=== PATIENT | female | born 1930 | race Caucasian/White ===

== ENCOUNTER 2017-07-16 11:58 | Inpatient (IN) ==
[2017-07-16] MEDS ORDERED: NS 1,000 ML IV ONE (12:30)
[2017-07-16 13:14] LABS: URINE CULTURE NEEDED? NO; URINE MICRO REVIEW NEEDED? NO; URINE SOURCE CLEAN CATCH
[2017-07-16 13:18] LABS: BILIRUBIN URINE NEGATIVE (NEGATIVE); BLOOD URINE NEGATIVE (NEGATIVE); COLOR YELLOW; GLUCOSE URINE NEGATIVE (NEGATIVE); LEUKOCYTES URINE NEGATIVE (NEGATIVE); NITRITE URINE NEGATIVE (NEGATIVE); PH URINE 6.5; PROTEIN URINE TRACE mg/dL (NEGATIVE); SP GRAVITY URINE 1.016; TURBIDITY URINE CLEAR (CLEAR); UROBILINOGEN URINE NORMAL (NORMAL)
[2017-07-16 13:20] LABS: ALBUMIN 3.9 g/dL (3.5-5.0); CALCIUM 9.3 mg/dL (8.8-10.2); POTASSIUM 4.7 mmol/L (3.5-5.1); TOTAL BILIRUBIN 0.38 mg/dL (0.20-1.00); TOTAL PROTEIN 6.9 g/dL (6.3-8.3)
[2017-07-16 13:20] LABS: UR EPITHELIAL CELLS <10 /HPF (<10); URINE BACTERIA 1+ /HPF; URINE RBC <10 /HPF (<10); URINE WBC <10 /HPF (<10)
--- NOTE | 2017-07-16 14:06 | Diag Imaging Result Doc PS360 ---
EXAM : CT HEAD/C-SPINE W/O CONTRAST HISTORY: syncope, fall TECHNIQUE: CT brain without contrast. CT cervical spine without contrast. Dose reduction protocol. COMPARISON: CT brain is compared to 02/01/2017. CT cervical spine as compared to 07/03/2014. FINDINGS: Head: No parenchymal hemorrhage. No epidural or subdural hematoma. No subarachnoid hemorrhage. There is diffuse atrophy with chronic microvascular ischemic changes. No mass identified on this noncontrasted exam. No hydrocephalus. No sinus opacification. Cervical spine: There is good alignment to the cervical spine. No precervical soft tissue swelling. No subluxation. No fracture. There are moderate degenerative changes in the mid and lower cervical spine. There are moderate atherosclerotic calcifications in the carotid bulbs. IMPRESSION: Head: 1. No hemorrhage. No injury. 2. Atrophy with chronic microvascular ischemic changes Cervical spine: 1. No acute fracture. 2. Moderate degenerative spine changes Electronically signed by Anand Prescott 07/16/2017 2:03 PM
[2017-07-16] MEDS ORDERED: CARDIZEM IV ONE ×3 (14:07→15:14)
[2017-07-16 14:28] LABS: MANUAL DIFF NEEDED? NO
[2017-07-16] MEDS ORDERED: NS 1,000 ML ONE (14:29)
[2017-07-16 14:31] LABS: BASO% 0.4 % (0.0-0.8); EOS# 0.09 X1000 (0.0-0.7); EOS% 0.9 % (0.0-10.0); HEMATOCRIT 38.3 % (37.0-47.0); HEMOGLOBIN 12.6 g/dL (12.0-16.0); IMM GRAN# 0.02 X1000 (0.0-0.04); IMM GRAN% 0.2 % (0.0-0.5); LYMPH# 1.06 X1000 (1.2-3.4); LYMPH% 11.2 % (20.5-51.1); MCH 34.3 PG (27-31); MCHC 32.9 g/dL (33-37); MCV 104.4 FL (81-99); MONO# 0.65 X1000 (0.11-0.59); MONO% 6.9 % (1.7-9.3); MPV 9.1 FL (7.4-10.4); NEUT% 80.4 % (42.2-75.2); PLT 200 X1000 (130-400); RBC 3.67 XMIL (4.2-5.4)
[2017-07-16] MEDS: NS 1,000 ML IV SCH (14:40)
--- NOTE | 2017-07-16 15:25 | PROVIDER DOCUMENTATION ---
This chart was entered by Virginia Barbosa Scribe, acting as scribe for Kishore Ching PA. HPI-General Adult - General Chief Complaint: Fall Stated Complaint: FALL Time Seen by Provider: 07/16/17 12:24 Source: patient Allergies/Adverse Reactions: Patient Allergies Allergy/AdvReac Type Severity Reaction Status Date / Time sulfamethoxazole AdvReac Unknown Verified 07/16/17 12:16 [From Bactrim] trimethoprim [From Bactrim] AdvReac Unknown Verified 07/16/17 12:16 Home Medications: Home Medication List Medication Instructions Recorded Confirmed Last Taken Type Lisinopril 5 mg PO DAILY 07/16/17 07/16/17 Unknown History SIMVAstatin [Zocor] 40 mg PO EVERY OTHER DAY 07/16/17 07/16/17 Unknown History - History of Present Illness -Gen Adult Nature of Presenting Problems: Patient is an 87 year old female who presents in the ED with family for falls. Family states patient was outside raking her yard when she suddenly fell, and states patient got up and then fell again while walking into the house. Family also states patient's "eyes rolled into the back of her head," and states patient denies any pain/injuries. Family states patient is alert and oriented x2 and states that is baseline for the patient due to history of dementia. Location of Pain/Injury: reports: none Pain Radiation: reports: no radiation Quality of Pain: reports: none Severity: reports: mild, moderate Onset/Duration: reports: abrupt, just prior to arrival Timing: reports: gone now Context/Activities at Onset: reports: moderate activity Modifying Factors: improves with: nothing Associated Symptoms: reports: denies symptoms Similar Symptoms Previously?: No Recently seen or treated by another doctor?: No Review of Systems - Adult - REVIEW OF SYSTEMS - ADULT Constitutional: reports: no symptoms reported Eyes: reports: no symptoms reported Ears, Nose, Mouth & Throat: reports: no symptoms reported Cardiovascular: reports: no symptoms reported Respiratory: reports: no symptoms reported Gastrointestinal: reports: no symptoms reported Genitourinary: reports: no symptoms reported Musculoskeletal: reports: no symptoms reported Integumentary: reports: no symptoms reported Neurological: reports: see HPI, syncope (?), other (fall x2 - unsure if tripped , unknown cause) Psychiatric: reports: no symptoms reported Endocrine: reports: no symptoms reported Hematologic/Lymphatic: reports: no symptoms reported Allergic/Immunologic: reports: no symptoms reported All Other Systems: Reviewed and Negative Past History - Adult - PAST MEDICAL HISTORY-ADULT Review of Records: reports: Old Records Reviewed, Nursing Assessment Review, Medications Reviewed Major Childhood Illnesses: reports: denies history Cardiovascular: reports: cardiac disease, HTN, hyperlipidemia Respiratory: reports: denies history Gastrointestinal: reports: denies history Obstetrical/Gynecological: reports: denies history Genitourinary: reports: denies history Musculoskeletal: reports: denies history Neurological: reports: denies history Psychiatric: reports: depression Endocrine/Immune: reports: denies history Other Conditions: reports: denies history - PRIOR SURGERIES/PROCEDURES Surgical/Procedure History: reports: CABG - IMMUNIZATION STATUS Childhood Immunizations: UTD Flu Vaccine: See Nurse Assessment - FAMILY HISTORY Family History: reviewed, not pertinent - SOCIAL HISTORY Smoking: denies, non-smoker Substance Use: none/never Alcohol Use Frequency: never Living Situation: family Physical Exam-General - PHYSICAL EXAM-ADULT Initial Vital Signs Reviewed: Yes - CONSTITUTIONAL General Appearance: alert, no apparent distress - EYES Eyes: PERRL/EOMI, pink conjunctivae - HEAD, EARS, NOSE, MOUTH & THROAT HENMT: normocephalic/atraumatic - NECK Neck: full range of motion, supple - RESPIRATORY Respiratory: chest non-tender, lungs clear, normal breath sounds, no pleuratic chest pain, no respiratory distress, no accessory muscle use - CARDIOVASCULAR Cardiovascular: regular rate, rhythm, no edema, no gallop, no JVD, no murmur - GASTROINTESTINAL (ABDOMEN) Abdominal Exam: soft, no organomegaly, no pulsatile mass - LYMPHATIC Lymphatic: no adenopathy - MUSCULOSKELETAL Back Exam: normal inspection, no CVA tenderness, no vertebral tenderness Extremity: normal range of motion, non-tender, normal gait, normal inspection - SKIN Integumentary: normal color, normal turgor, warm/dry - NEUROLOGIC Neurologic: grossly normal, no motor/sensory deficits - PSYCHIATRIC Psych/Mental Status: normal mood/affect, oriented x 3 Progress - PLAN OF CARE/RESULTS Progress/Plan/Lab Results: Vital Signs - 8 hr 07/16/17 12:08 Temperature 97.7 F Pulse Rate 84 Respiratory Rate 14 Blood Pressure 94/52 O2 Sat by Pulse Oximetry 100 Orders Category Date Time Status Saline Loc NOW Care 07/16/17 12:[address] HEAD/C-SPINE W/O CONTRAST [CT] Stat Exams 07/16/17 12:30 Ordered CBC WITH ELECTRONIC DIFF [HEME] Stat Lab 07/16/17 12:36 Results COMPREHENSIVE METABOLIC PANEL [CHEM] Stat Lab 07/16/17 12:36 Received URINALYSIS W/POSS RFLX CULT-1 [URINALYSIS] Stat Lab 07/16/17 12:30 Uncollected 0.9% Sodium Chloride Inj [Ns] 1,000 ml Med 07/16/17 12:30 Active IV 999 mls/hr EKG [EKG] Stat Ther 07/16/17 12:30 Ordered Result Diagrams: 07/16/17 14:25 07/16/17 12:36 - REASSESSMENT Reassessment #1 Time Reassessed: 15:23 Status: improving (Pt is feeling well. HR has been in the 90-110s for 20 min.) - CT/MRI 1 CT Study: Head, Neck Impression: Normal - CONSULTS/PCP/HOSPITALIST Notification #1 *Consult/PCP/Hospitalist*: Hospitalist Service Time Discussed: 15:23 Consult Disposition: Admit Departure - Departure Date of Disposition Decision: 07/16/17 Time of Disposition Decision: 15:23 DIAGNOSIS: Syncope Qualifiers: Syncope type: unspecified Qualified Code(s): R55 - Syncope and collapse Atrial fibrillation Qualifiers: Atrial fibrillation type: unspecified Qualified Code(s): I48.91 - Unspecified atrial fibrillation Disposition: ADMITTED INPATIENT 09 Certified Medical Emergency: Emergent Condition: Stable Referrals and Follow-Ups: Forest Kirby MD [Primary Care Provider] - - Critical Care Note This patient required my direct & personal management of CC.: No Attestation - Physician/ URIEL Attestation Patient care was provided by Advanced Practice Provider:: Yes Advanced Practice Provider:: Kishore Ching Advanced Practice Provider documentation review:: The Mid-level provider documentation, treatment plan and medical decision making was reviewed by the physician who agrees with all treatment and medical decision making by the MLP. The physician spent face to face time with patient:: Yes Advanced Practice Provider documentation review:: Supervising physician onsite and consulted in the evaluation and care of this patient. The physician did have a face to face encounter with the patient. This chart was documented by the indicated scribe, (Virginia Barbosa, Scribe) and accurately reflects the services I performed and decisions made by , Kishore Ching PA, as attested by the provider's signature.
[2017-07-16] MEDS ORDERED: CARDIZEM 100 MG/NS 100 MG/100 ML IVPB IV SCH (16:23)
[2017-07-16] MEDS ORDERED: LOVENOX 1 MG/KG SUBQ ONE (16:34)
[2017-07-16] MEDS ORDERED: LOVENOX SUBQ ONE (16:40)
--- NOTE | 2017-07-16 17:14 | Diag Imaging Result Doc PS360 ---
EXAM: CHEST-PORTABLE HISTORY: afib TECHNIQUE: Portable upright COMPARISON: 04/25/2017 FINDINGS: Sternal wires are present. Heart is not enlarged. The vessels are not distended. No pneumonia. No pleural effusions identified. Mild fibrosis. IMPRESSION: Stable chest. Electronically signed by Anand Prescott 07/16/2017 5:12 PM
[2017-07-16 18:16] LABS: FREE T4 1.14 ng/dL (0.93-1.70)
--- NOTE | 2017-07-16 18:31 | HISTORY AND PHYSICAL ---
PRIMARY CARE PROVIDER: Dr. Forest Kirby CHIEF COMPLAINT: Syncope. HISTORY OF PRESENT ILLNESS: Ms. Yuan is an 87-year-old, female , with a history of dementia, interstitial pulmonary fibrosis, followed by Dr. Traore, CAD, hyperlipidemia and hypertension, who presents with witnessed syncopal episode today. The patient has dementia and is unable to give any type of reliable history. Daughter at the bedside states she witnessed her mother fall while she was sweeping the floor. The patient, herself, denies any chest pain or shortness of breath. No palpitations. She has had some left flank pain recently, but denies any dysuria, diarrhea, abdominal pain and constipation. She has a cardiac history and has not seen Cardiology in some time. When she got to the ER today, she had labs and diagnostics done. EKG showed atrial fibrillation with RVR, which she has no history of. Labs showed macrocytosis, otherwise unremarkable. She has been started on Cardizem bolus and drip, and she is going to be admitted to the CICU for further treatment and evaluation. Of note, a head and cervical spine CT was negative. PAST MEDICAL HISTORY: 1. IPF followed by Dr. Traore. 2. Dementia. 3. Coronary disease. 4. Hyperlipidemia. 5. Hypertension. SURGICAL HISTORY: CABG. SOCIAL HISTORY: The patient denies tobacco, alcohol, or drug use. She is . She lives with her daughter. FAMILY HISTORY: Noncontributory. REVIEW OF SYSTEMS: Unable to obtain. ALLERGIES: Bactrim. HOME MEDICATIONS: Lisinopril 5 mg daily, Zocor 40 mg daily. PHYSICAL EXAMINATION: VITAL SIGNS: Blood pressure is 95/70, heart rate 125, respiratory rate 19, O2 saturation 95% on room air, temperature is 97.7 degrees. GENERAL: Frail and elderly-appearing, 87-year-old, female, lying in hospital bed. No acute distress. NEUROLOGIC: Nonfocal, but the patient is disoriented to almost every question, except her name. HEENT: Head is atraumatic, normocephalic. Pupils equal, round, reactive to light. Oral mucosa moist. Trachea midline. No JVD or carotid bruits. CHEST: Diminished, with Velcro-type crackles in the bases. CARDIOVASCULAR: Tachy and irregular. S1, S2 noted. GASTROINTESTINAL: Soft, nondistended, nontender. Bowel sounds positive. EXTREMITIES: No edema, clubbing, or cyanosis. Pulses palpable bilaterally. DIAGNOSTIC DATA: Head and C-spine CT negative for acute process. Chronic changes noted. EKG: Atrial fibrillation with RVR. WBC 9.48, hemoglobin 12.6, hematocrit 38.3, MCV 104.4, platelet count 200,000. Sodium 144, potassium 4.7, chloride 107, CO2 27, anion gap 10, BUN 27, creatinine 1, glucose 100. LFTs within normal limits. CK and troponin negative. Albumin 3.9. UA is negative. ASSESSMENT AND PLAN: 1. Syncope: Likely secondary to atrial fibrillation with rapid ventricular response. We will trend her enzymes. Monitor neuro status closely and hydrate. 2. Atrial fibrillation with rapid ventricular response: This is new-onset. We will continue with Cardizem bolus and drip, and admit her to the CICU. She has elevated CHADS score, so we will start her on Lovenox 1 mg/kg and defer long-term anticoagulation to Cardiology. We will check thyroid function, B12, folate and chest x-ray as well. 3. Interstitial pulmonary fibrosis: We are going to check a chest x-ray. Her vitals are stable. We will hold off on consulting Dr. Traore for now. If anything changes, we will certainly give him a call. 4. Hypertension: We will hold off on her medicines for now. She is on Cardizem. 5. Coronary artery disease: Again, we are going to check an echocardiogram and lipid panel. Cardiology has been consulted for any further management. 6. Deep vein thrombosis prophylaxis will be provided with Lovenox. Further recommendations to follow. Patient seen and examined by me face to face, lab work, vitals signs and images were reviewed, on my physical exam she is stable right now, no chest pain , we will consult cardiology, she looks dehydrated, we will provide gentle IV fluids, I agree with the EXECUTIVE RECRUITER's assessment and plan, Barry Love MD Dictated by LEENA Ramachandran for Barry Varela MD cc: LEENA Ramachandran MD [facility]
[2017-07-17] MEDS: NS 1,000 ML IV SCH ×2 (04:58→16:59)
[2017-07-17] MEDS: CARDIZEM PO SCH ×5 (04:58→22:53)
[2017-07-17 05:54] LABS: HEMATOCRIT 31.3 % (37.0-47.0); HEMOGLOBIN 10.1 g/dL (12.0-16.0); MCH 34.6 PG (27-31); MCHC 32.3 g/dL (33-37); MCV 107.2 FL (81-99); MPV 9.1 FL (7.4-10.4); RBC 2.92 XMIL (4.2-5.4)
[2017-07-17 06:02] LABS: AGAP 8; BUN 23 mg/dL (8-22); CALCIUM 8.5 mg/dL (8.8-10.2); CHLORIDE 110 mmol/L (98-107); COSMO 292; HDL 44 mg/dL (45-65); LDL 101 mg/dL; POTASSIUM 4.2 mmol/L (3.5-5.1); SODIUM 145 mmol/L (136-145); TCO2 27 mmol/L (25-35); TRIGLYCERIDES 69 mg/dL (35-135); VLDL 14 mg/dL
--- NOTE | 2017-07-17 06:04 | EKG Report ---
Test Performed on : 07/16/2017 1:32:19 PM Test Reason : syncope Blood Pressure : / mmHG Vent. Rate : 108 BPM Atrial Rate : 093 BPM P-R Int : 000 ms QRS Dur : 082 ms QT Int : 294 ms P-R-T Axes : 000 028 258 degrees QTc Int : 393 ms Atrial fibrillation. with rapid ventricular response. with premature ventricular or aberrantly condu cted complexes. ST \T\ T wave abnormality, consider inferior ischemia Abnormal ECG When compared with ECG of 01-FEB-2017 07:01, Previous ECG has undetermined rhythm, needs review ST now depressed in Anterior leads Nonspecific T wave abnormality, worse in Inferior leads Unconfirmed Result
[2017-07-17] MEDS: LOPRESSOR PO SCH ×2 (10:25→16:59)
[2017-07-17] MEDS: ASPIRIN PO SCH (10:25)
--- NOTE | 2017-07-17 10:50 | CONSULTATION ---
DATE OF CONSULTATION: 07/17/2017 REFERRING PHYSICIAN: Dr. Granda, hospitalist service. INDICATION: Syncope, atrial fibrillation. HISTORY: Ms. Yuan is a pleasant 87-year-old female that is a patient of Dr. Forest Kirby who was brought by her family to the emergency room on July 16 at about 12:30 in the afternoon because of an episode of loss of consciousness and fall happening twice when she was sweeping her patio at home. Initially, the daughter who was next to her heard a thump and turned around and saw her lying on the floor. Apparently, at that time, she was fully responsive. She had not suffered any major injury. Then she picked her up, and as she was walking back towards the house, she seemed to go down again a second time, and this second time her eyes rolled back and she appeared to be unresponsive for a brief moment. Then she regained consciousness. She went to call the ambulance, and patient's daughter's or the son-in-law reported that she had some jerking motion on the right side of her body for a few moments. At any rate, upon presentation, they did an EKG that showed atrial fibrillation with aberrant conduction and rapid heart rate. They did a CT scan of the head and cervical spine because she fell on her back and bumped her head. There was no evidence of hemorrhage or injury. There is atrophy with chronic microvascular ischemic changes, no acute fracture. A chest x-ray was done that shows some possible fibrosis at the bases. However , no effusions or infiltrates. Blood work show a white count of 5720, hemoglobin of 10.1. This is today. Sodium is 145, BUN is 23, creatinine 0.8, potassium 4.2. They have done several troponin levels, a total of 3--they are negative. She is not having any chest pain. She is not having any shortness of breath at this time. No swelling of the legs. Daughter states that she has suffered other falls during the course of the past 3 years. The patient has been living with her daughter for the past 3 years because of concern about falling and not being able to take care of herself. In addition, the patient has developed dementia, and her short- and long-term memory is not good. PAST MEDICAL HISTORY: Positive for severe coronary heart disease. She has had bypass surgery in 1998. [facility] The last time she was seen by [facility] of the [facility] was 5 years ago. They had done a stress test back then and it came back negative or normal. Last stress test is January 2012. Originally, the patient underwent a procedure that included a mammary artery to LAD, vein graft to marginal, and vein graft to the posterior descending branch. She does have a history of hypertension. Otherwise, she has been remarkably healthy. SOCIAL HISTORY: She is a . She has only 1 child who is the patient's daughter in the room providing information. FAMILY HISTORY: Positive for heart disease in both parents of the patient. HOME MEDICATIONS: At this time included simvastatin 40 mg daily and lisinopril 5 mg daily. The patient has been under the care of Dr. Maurizio Traore also for pulmonary fibrosis which appears to be idiopathic. No specific therapy has been advised for that condition. REVIEW OF SYSTEMS: The patient tends to be active at home. She likes to do some sweeping of the patio whenever she can. She likes to be very organized. Appetite has not been good. There is a questionable cricopharyngeal dysphagia in her that was noted on a recent x-ray test. There is no other major past history. ALLERGIES: She has no major allergies. PHYSICAL EXAMINATION TODAY: Vital signs: Blood pressure is 135/54, temperature 98 degrees, pulse 61, respirations 12. General: She is awake, alert, oriented, in no distress. HEENT: Unremarkable. Chest: Fairly clear to auscultation and percussion. Cardiac: Heart sounds are regular and rhythmic. I do not hear any gallop or murmur. Abdomen: Nontender , soft, no masses, no hepatomegaly. Extremities: Decreased pulses, no peripheral edema. Evidence of previous incision for saphenectomy on the left leg. Neurological: She is awake. She follows commands. She is pleasant. She is not oriented in time. She is oriented to person and place. BLOOD WORK: I have already reported. IMPRESSION: 1. Patient presenting with atrial fibrillation with rapid response. She just flipped back to sinus rhythm as I was examining her. That is why her pulse is regular now. 2. Syncope versus postural hypotension. Question of sick sinus syndrome, tachycardia/bradycardia syndrome. 3. Previous coronary bypass surgery.severe ASHD. stable angina pattern. 4. History of hypertension and history of hyperlipidemia. She also has a history of mild generalized degenerative arthritis. RECOMMENDATION: At this point in time, we will review the echocardiogram that has been done recently. We will do a carotid ultrasound. We will consider a Neurology consultation. We may have to ask for a 30-day KASSIE monitor. Because of her tendency to fall, she may not be a good candidate for long-term anticoagulation. We will put her on a low dose of beta- madhuri and will see how she does. cc: Salvador Dominguez MD MTDPearl
--- NOTE | 2017-07-17 11:51 | EKG Report ---
Test Performed on : 07/17/2017 09:54:22 AM Test Reason : atrial fibrillation Blood Pressure : / mmHG Vent. Rate : 070 BPM Atrial Rate : 070 BPM P-R Int : 344 ms QRS Dur : 098 ms QT Int : 408 ms P-R-T Axes : 038 -02 049 degrees QTc Int : 440 ms Sinus rhythm. with 1st degree AV block. with premature atrial complexes. Cannot rule out Anterior infarct , age undetermined Abnormal ECG When compared with ECG of 16-JUL-2017 13:32, (Unconfirmed) premature ventricular complexes. are no longer present premature atrial complexes. are now present NH interval has increased Vent. rate has decreased BY 49 BPM Nonspecific T wave abnormality has replaced inverted T waves in Inferior leads Nonspecific T wave abnormality now evident in Anterior leads Confirmed by Lexus GAMBOA, Jamil Hicks ([id number]) on 07/18/2017 11:55:20 AM
--- NOTE | 2017-07-17 13:08 | PROGRESS NOTE ---
DATE: 07/17/2017 SUBJECTIVE: This patient states that she is feeling better. She is not having palpitation, chest pain, or shortness of breath. Family members at the bedside. No acute events during the day. OBJECTIVE: Vital Signs: Temperature 98.1 degrees, pulse 57, respiratory rate 12, blood pressure 124/60, O2 saturation 100% on room air. HEENT: Head normocephalic. No trauma. Pupils equal, round, and reactive to light and accommodation. Neck: Supple. No jugular venous distention. No masses. Central trachea. Chest: Clear to auscultation. No wheezing. No rales. Abdomen: Soft, nontender, nondistended. No hepatosplenomegaly. Extremities: No edema. No clubbing. No cyanosis. Neurological Examination: The patient is alert, oriented x3. No focal deficits. LABORATORY: WBC 5.7, hemoglobin 10.1, hematocrit 31.3. Platelets 181,000. Sodium 145, potassium 4.2, chloride 110, bicarbonate 27. BUN 23, creatinine 0.8, glucose 84, calcium 8.5. Troponin's negative x3. ASSESSMENT AND PLAN: 1. Syncope. This is likely secondary to atrial fibrillation with rapid ventricular rate, but the possibility off of sick sinus syndrome can be one of the explanation. Apparently, also this patient was a little bit dehydrated. 2. Atrial fibrillation with rapid ventricular response. This patient has been placed on Cardizem drip, but today this patient converted to sinus rhythm. Cardiology Department on board. We will continue following their recommendations. 3. Interstitial pulmonary fibrosis, stable. Continue to monitor. 4. Possible sick sinus syndrome. Cardiology Department on board. Continue to monitor. 5. Hypertension, stable. Continue with the same management. 6. History of coronary artery disease. We already did an echocardiogram, will monitor. No chest pain at this moment. 7. Deep vein thrombosis prophylaxis with Lovenox. cc: Barry Varela MD
--- NOTE | 2017-07-17 17:22 | ECHO REPORT ---
ORDER DATE: 07/16/2017 INDICATION: Atrial fibrillation. Pulmonary fibrosis, syncope, coronary artery disease. FINDINGS: 1. Right atrium is mildly enlarged at 4.6 cm. 2. Mild tricuspid regurgitation. RV systolic pressure of 36. 3. Normal RV size and systolic function. 4. Mild pulmonic insufficiency. 5. Mild left atrial enlargement with a volume index of 29. 6. No mitral valve prolapse. Mild mitral regurgitation. 7. Normal LV size with an end-diastolic dimension of 3.8. Mild left ventricular hypertrophy with a posterior and interventricular septal wall thickness 1.1 and 1.2 cm respectively. Normal LV systolic function. Calculated EF of 62% with normal wall motion. 8. Aortic valve opens well although it appears slightly thickened. The valve is trileaflet. Mild aortic insufficiency. 9. Aorta appears normal in visualized segments. 10. There is a small anterior pericardial effusion with no evidence of tamponade. cc: MD Erik Gautam CRNP
[2017-07-17 17:29] LABS: INR 0.99; PROTIME 10.4 Seconds (9.2-11.7)
[2017-07-18] MEDS: NS 1,000 ML IV SCH ×2 (05:16→05:30)
[2017-07-18] MEDS: LOPRESSOR PO SCH ×2 (05:17→10:00)
[2017-07-18] MEDS: CARDIZEM PO SCH ×2 (05:17→10:00)
[2017-07-18 05:41] LABS: HEMATOCRIT 31.2 % (37.0-47.0); HEMOGLOBIN 10.3 g/dL (12.0-16.0); MCH 35.2 PG (27-31); MCV 106.5 FL (81-99); MPV 9.4 FL (7.4-10.4); RBC 2.93 XMIL (4.2-5.4)
[2017-07-18 05:44] LABS: AGAP 9; BUN 19 mg/dL (8-22); CHLORIDE 108 mmol/L (98-107); COSMO 288; POTASSIUM 3.7 mmol/L (3.5-5.1); SODIUM 144 mmol/L (136-145); TCO2 27 mmol/L (25-35)
--- NOTE | 2017-07-18 06:32 | EKG Report ---
Test Performed on : 07/18/2017 05:55:57 AM Test Reason : atrial fibrillation Blood Pressure : / mmHG Vent. Rate : 051 BPM Atrial Rate : 051 BPM P-R Int : 264 ms QRS Dur : 100 ms QT Int : 452 ms P-R-T Axes : 040 001 021 degrees QTc Int : 416 ms Sinus bradycardia. with 1st degree AV block. Possible Anterior infarct (cited on or before 17-JUL-2017) Abnormal ECG When compared with ECG of 17-JUL-2017 09:54, (Unconfirmed) premature atrial complexes. are no longer present Nonspecific T wave abnormality no longer evident in Lateral leads Confirmed by Lexus GAMBOA, Jamil Hicks ([id number]) on 07/18/2017 11:56:38 AM
[2017-07-18 08:49] LABS: ALLEN TEST YES; BE 2.6 mmoll (-3.0-3.0); BLOOD TYPE ARTERIAL; DRAW SITE R RADIAL; O2(CT) 14.5 mL/dL (15.0-23.0); PCO2(98.6) 41 mmHg (35-45); PO2(98.6) 60 mmHg (60-100); SAMPLE BLOOD; SAO2 96.2 % (95.0-100.0); THB 11.1 g/dL (11.5-17.4); pH(98.6) 7.43 (7.35-7.45)
[2017-07-18 08:50] LABS: MODALITY ROOM AIR
[2017-07-18] MEDS: ASPIRIN PO SCH (10:00)
--- NOTE | 2017-07-18 10:17 | PROGRESS NOTE ---
DATE: 07/18/2017 CHIEF COMPLAINT: Irregular heartbeat, questionable syncope. SUBJECTIVE: Mrs. Yuan has not had any further episodes of loss of consciousness. However, daughter has witnessed some jerkiness motion apparently on the face and also on the right side of the body. This was noted prior to admission. The patient is scared because she cannot control that jerky motion. She does not hurt with them. She has not had any chest pain. Telemetry indicates sinus rhythm with a first-degree A-V block. Her EKG today shows sinus rhythm, sinus bradycardia, rate 51. NH interval is 264 msec. PHYSICAL EXAMINATION: Vital signs: Blood pressure 155/66, temperature 98.2, pulse 69, respirations 13. General: She is awake, alert, follows commands. HEENT: Unremarkable. Chest: Fairly clear to auscultation and percussion. Cardiac: Heart sounds are regular and rhythmic. I do not hear any gallop or murmur. Abdomen: Nontender, soft, no masses, no hepatomegaly. Extremities: No edema. Neurological: Follows commands, moves four extremities. BLOOD WORK: Her TSH was 0.21, which is slightly low. Free T4 was 1.14 which is normal. Her HDL cholesterol is 44, LDL 101. Total cholesterol 159. Triglycerides 69. Sodium 144, potassium 3.7, BUN 19, creatinine 0.8. Hemoglobin 10.3, MCV 106.5, WBC 6870. IMPRESSION: 1. Patient who has episode of syncope versus seizure. She has had frequent falls. 2. Coronary heart disease, previous bypass. 3. Paroxysmal atrial fibrillation, questionable sick sinus syndrome. RECOMMENDATION: At this point in time, I will ask for total T3 and free T3 to complete her thyroid panel. I will get a level of ammonia. I will get ABGs to check her CO2 level and pH. Her calcium level has been normal. I do not think this tremor is related to hypocalcemia. We will request a Neurology evaluation or opinion. Further advice will be forthcoming. cc: Salvador Dominguez MD
[2017-07-18 12:04] VITALS: BP 136/52
--- NOTE | 2017-07-18 14:32 | PROGRESS NOTE ---
DATE: 07/18/2017 SUBJECTIVE: This patient is getting an EEG today. Neurology Department has been consulted because this patient has been having involuntary movements, mostly her face, and I think right upper extremity. When I evaluated this patient, she was not having any kind of movement but, as per the daughter, she had some movement spell in the morning. She is not complaining of chest pain. No shortness of breath or palpitations. OBJECTIVE: Vital Signs: Temperature 98.2 degrees, pulse 52, respiratory rate 14, blood pressure 140/52. Oxygen saturation 92 on 2 L of nasal cannula. HEENT: Normocephalic. No trauma. PERRLA. Neck supple. No JVD. No masses. Central trachea. Chest clear to auscultation. No wheezing. No rales. Abdomen is soft, nontender, nondistended. No hepatosplenomegaly. Extremities: No edema. No clubbing. No cyanosis. Neurological: The patient is alert and oriented x3. No focal deficits. LABORATORY: WBC 6.8, hemoglobin 10.3, hematocrit 31.2, platelets 189,000. Sodium 144, potassium 3.7, chloride 108, bicarbonate 27. BUN 19, creatinine 0.8, glucose 85. Calcium 9. Ammonia 23. ASSESSMENT AND PLAN: 1. Syncope likely secondary to atrial fibrillation with rapid ventricular rate but the possibility of sick sinus syndrome can be one of the possible explanations. Apparently also, this patient was a little bit dehydrated. We need to rule out subclinical seizures. She is getting an EEG done today and Neurology Department has been consulted. 2. Atrial fibrillation with rapid ventricular response, controlled. 3. Interstitial pulmonary fibrosis, stable. Continue to monitor. 4. Possible sick sinus syndrome. Cardiology Department following this patient closely. 5. Hypertension, stable. Continue with the same management. 6. History of coronary artery disease. Continue to monitor. 7. Deep vein thrombosis prophylaxis with Lovenox. cc: Barry Varela MD
[2017-07-18] MEDS ORDERED: LOPRESSOR PO SCH (15:30)
--- NOTE | 2017-07-18 18:49 | EEG REPORT ---
DATE: 07/18/2017 EEG NUMBER: [id number]. INDICATIONS: Ms. Yuan is 87 years old. This EEG is ordered because of episodes with question of seizure. There is reported baseline dementia. FINDINGS: During waking, medium amplitude 9 Hz posterior rhythm is present bilaterally, poorly sustained. Background contains polymorphic and rhythmic theta frequencies over the frontal and central regions symmetrically. Drowsing occurred briefly. Stage 2 sleep was not recorded. Photic stimulation did not significantly alter the record. No definite epileptiform discharge was identified. INTERPRETATION: Normal EEG. CORRELATION: The absence of epileptiform discharges on a single EEG does not exclude a clinical diagnosis of seizures. Normal EEG is often encountered in patients with [id number] dementia. cc: Keyla Price III, MD
--- NOTE | 2017-07-18 20:40 | CONSULTATION ---
DATE OF CONSULTATION: 07/18/2017 NEUROLOGY CONSULTATION [facility] bed 7 Ms. Yuan is 87 years old and she had some recent episodes of collapse. There is a history of some limb jerking and question of seizure. History from her attentive daughter at the bedside and from a review of the available hospital record is that she has had significant dementia for several years. She moved in with daughter for this reason about 3 years ago with a gradual progressive downhill course with cognitive function over that time. Several months ago she called her daughter's attention to some shaking movement. In retrospect, daughter is not certain this was unilateral or global. She recalls the patient reported "I'm shaking on the inside" and there was some visible shaking in the limbs. She seemed to have trouble making herself understood with speech but did not have trouble understanding speech. She was clearly alert during that entire episode. That resolved spontaneously but she did not seem completely recovered for approximately a day. A few weeks ago she had a similar but milder episode of jerking with a complaint of feeling shaking on the inside but no disrupted speech then. Again, there was no altered consciousness then. Yesterday, the patient was standing and sweeping. The daughter was nearby. The daughter heard the patient "grunt" and found her down on the floor. She did not see her fall and did not hear her fall. Patient was immediately alert, speaking appropriately, recognized daughter. She rested on the floor a short time and then her daughter helped her up. After she had taken 8 or 10 steps, daughter noticed that patient collapsed again with head back, eyes rolled back. She did not grunt at that time. She rested a little bit more and then was helped up into a chair. While seated in the chair, daughter's noted the patient to have some shaking in the right limbs. That resolved in a few minutes. Today, the patient is experiencing some shaking movement in the limbs and she has reported that. Overnight, she woke daughter up at the bedside to report she was having the shaking movements. Past history is remarkable for atrial fibrillation. Daughter reports documented low blood pressure discovered by EMT on the scene with her episode yesterday. She has had Cardiology evaluation here. Noncontrast CT of the head does not show anything definite. EEG today shows generalized slowing and some muscle contraction artifact but no epileptiform discharge and no focal slowing. There is no history of other stroke, syncope, collapse, head injury. She has never used much ethanol. 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 She has never required medicine to control seizures. On examination, she is awake, alert, attentive, cheerful, appropriate. Speech is not dysarthric right now. She had trouble naming parts of objects but otherwise did well on bedside language testing for repeating, naming, comprehension. She followed some simple commands consistently. She had a little trouble following commands which required right/left distinction and digit distinction. She was not able to name the president, to provide the correct date, to name this institution. She did identify her daughter correctly by name but told me that her daughter was "my mother." Head and neck are unremarkable. 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 There is no meningismus. She has good power in the arms and legs. She did well on [id number] testing bilaterally. She has some rigidity in the arms but no definite cogwheeling. She has some intermittent shaking which is not definitely rhythmic and not typical of tremor. This is sometimes noticed with arms in postural suspension but is also present at rest. The irregular nature is consistent with asterixis but, overall, features are not typical of any classifiable movement disorder. I do not see definite myoclonus. I did not test her gait. Visual adams are full. Extraocular movements are full laterally. She has limited upgaze typical for age. Facial motility is a little bit diminished bilaterally, but symmetric now. Gag is intact. Tongue is midline. She can hear. Shoulder shrug is good bilaterally. IMPRESSION: 1. Longstanding dementia. This would predispose her to encephalopathy if she presents with medical illness, but I believe she is near baseline now. She and daughter have considered cholinesterase inhibitor trial in the past but she has never been treated for dementia. She might reconsider cholinesterase inhibitor trial later but that is not urgent. 2. Recent episodes of collapse seems to be most likely related to hypotension. Features are not typical of seizure. Specifically, report that she was immediately alert after collapse would not be typical of seizure. EEG does not show evidence of seizure. Therefore , I do not think we need to add medicine for seizure control at this point. If she has more episodes, particularly if there are more typical seizure-like features, we can reconsider. 3. Shaking. At the time of my examination, features are not typical of classifiable movement disorder. I discussed with daughter some possible simple measures including infrequent diphenhydramine. Daughter reported the patient seemed to settle down with a dose of aspirin and diphenhydramine after one of her earlier shaking episodes. We discussed potential adverse anticholinergic effect on cognitive function with diphenhydramine and daughter will be careful with that. If diphenhydramine is not adequate, we might consider treating more specifically with medicine for tremor. Thank you for asking me to see Ms. Yuan. I will be glad to see her again if needed. cc: Keyla Price III, MD MTDD
--- NOTE | 2017-07-19 14:16 | DISCHARGE SUMMARY ---
ADMISSION DATE: 07/16/2017 DISCHARGE DATE: 07/18/2017 DISCHARGE DIAGNOSES: 1. Syncope. 2. Atrial fibrillation with rapid ventricular response, resolved. 3. Questionable sick sinus syndrome. 4. Interstitial pulmonary fibrosis. 5. Hypertension. 6. History of coronary artery disease. CONSULTATIONS: 1. Cardiology Department, Dr. Dominguez. 2. Neurology Department, Dr. Keyla Price III. HOSPITAL COURSE: An 87-year-old female with a past medical history of dementia, interstitial pulmonary fibrosis, coronary artery, disease, hyperlipidemia and hypertension presents to the emergency department with weakness, syncopal episode on 2016. This patient has baseline dementia, and she was unable to give us any kind of reliable information. Family members were at the bedside, and they witnessed her fall while she was sweeping the floor. At the time of admission, the patient denied chest pain. No shortness of breath. No palpitations. No diarrhea or dysuria, abdominal pain, or constipation. She has a cardiac history , but she has not been following a heart doctor for sometime. In the emergency department, they find out that this patient had atrial fibrillation and RVR. She was placed on diltiazem drip, and she was transferred to the [facility]. Cardiology Department evaluated this patient. She has been having episodes of bradycardia but her rhythm was sinus. This patient also was complaining of some episodes of tremors mostly at the level of the upper extremities, and they were concerned about any kind of seizure activity. Neurology Department was consulted. We did an EEG that I believe did not show any seizure-type abnormality. This patient was feeling good today. Vital signs are stable. Cardiology Department monitoring this patient closely, and this why we decided to discharge this patient with an active follow up by Dr. Dominguez. She will need to use a cardiac device to monitor the heart rate for a period of time and then. Dr. Dominguez will set up for her, he will send the equipment to her house, and he will follow up with her afterwards after finishing the monitoring. Upon discharge, the patient was in a stable medical condition. She was tolerating p.o. Family members and family members at the bedside and they understood every single detail of our further plan. PHYSICAL EXAMINATION: Temperature 98.8 degrees, pulse 53, respiratory rate 18, blood pressure 136/52, oxygen saturation 98 on 2 L of nasal cannula. HEENT: Normocephalic. No trauma. PERRLA. Neck: Supple. No JVD. No masses. Central trachea. Chest clear to auscultation. No wheezing. No rales. Abdomen soft, nontender, nondistended. No hepatosplenomegaly. Cardiovascular: RRR. Bradycardic. No murmurs. Extremities: No edema. No clubbing. No cyanosis. Neurological: The patient is alert and oriented x3. She is able to recognize people around her but as per the daughter , she is sometimes confused on and off. Given her history of dementia. LABORATORY: WBC 6.8, hemoglobin 10.3, hematocrit 31.2, platelet 189, sodium 144 , potassium 3.7, chloride 108, bicarbonate 27. BUN 19, creatinine 0.8, glucose 85, calcium 9. Magnesium 2. Ammonia 23. DISCHARGE MEDICATIONS: 1. Simvastatin 40 mg p.o. daily. 2. Metoprolol 12.5 mg p.o. q.12 hours. 3. Aspirin 81 mg p.o. daily. FOLLOWUP: Follow up with her primary care doctor in 1 week. Also, follow up with Dr. Dominguez at the end of the cardiac monitoring. Time discharging this patient 35 minutes cc: Barry Varela MD [facility]
--- NOTE | 2017-07-23 08:13 | Carotid Study ---
DATE: 07/17/2017 PROCEDURE: Carotid duplex imaging. REFERRING PHYSICIAN: Salvador Dominguez MD. INTERPRETING PHYSICIAN: Chito Crockett MD. TECH: [place]. INDICATIONS: Syncope. OBSERVED DATA RIGHT LEFT Brachial Blood Pressure Carotid Pulse Bruits: Carotid/Sub DIAGRAM OF ULTRASOUND IMAGING R L RIGHT INT EXT INT EXT LEFT Christopher (cm/s) Christopher (cm/s) Subclavian 83/0 Subclavian 121/0 CCA Proximal 70/7 CCA Proximal 93/12 CCA Distal 68/11 CCA Distal 84/16 Bulb 76/12 Bulb 72/11 ICA Proximal 66/17 ICA Proximal 67/17 ICA Mid 64/17 ICA Mid 76/24 ICA Distal 69/23 ICA Distal 74/20 ECA 75/6 ECA 95/0 Vertebral 101/21 Vertebral 53/0 ICA/CCA Ratio 0.99 ICA/CCA Ratio 0.82 % Stenosis 0-39 % Stenosis 0-39 FINDINGS: Irregular calcific plaque is noted at the carotid bulb and proximal internal carotid arteries bilaterally. There is antegrade vertebral flow bilaterally. INTERPRETATION: Mild plaque disease as described above which at this time does not produce a stenosis of hemodynamic significance. cc: MD Salvador Nolasco MD
--- NOTE | 2017-07-25 14:14 | ED EKG INTERP ---
This chart was entered by Virginia Barbosa Scribe, acting as scribe for Rio Kay MD. EKG Interpretation - EKG Time of EKG reading by physician:: 13:32 EKG Read and Signed by:: Rio Kay EKG Interpretation (*Must complete 3 of following elements*): Abnormal Rate: 108 Rhythm: a-fib with RVR with premature ventricular or aberrantly conducted complexes Comments: ST & T wave abnormality, consider inferior ischemia Attestation - Physician/ URIEL Attestation Patient care was provided by Advanced Practice Provider:: Yes Advanced Practice Provider documentation review:: The Mid-level provider documentation, treatment plan and medical decision making was reviewed by the physician who agrees with all treatment and medical decision making by the MLP. The physician spent face to face time with patient:: No Advanced Practice Provider documentation review:: Supervising physician onsite and consulted in the evaluation and care of this patient. The physician did not have a face to face encounter with the patient. This chart was documented by the indicated scribe, (Virginia Barbosa Scribe) and accurately reflects the services I performed and decisions made by me, Rio Kay MD, as attested by the provider's signature.
== END 2017-07-18 17:00 | disposition home or self-care (01) ==
LOC: ED 11:58 → EDIPHOLD 16:44 → 3S 18:56
PROVIDERS: ATTEND Internal Medicine